=== PATIENT | female | born 1940 | race Caucasian/White ===

== ENCOUNTER 2023-10-15 09:54 | Emergency (ER) | payer MEDICARE ==
[2023-10-15] MEDS: Acetaminophen 500 MG Tab PO ONE (11:14)
== END 2023-10-15 13:12 | disposition home or self-care (01) ==
LOC: MW.ED 09:54
DX: S52.614A Nondisplaced fracture of right ulna styloid process, initial encounter for closed fracture (principal); S52.571A Other intraarticular fracture of lower end of right radius, initial encounter for closed fracture; S42.211A Unspecified displaced fracture of surgical neck of right humerus, initial encounter for closed fracture; Z88.0 Allergy status to penicillin; Z88.2 Allergy status to sulfonamides; W10.8XXA Fall (on) (from) other stairs and steps, initial encounter; Y93.01 Activity, walking, marching and hiking
CPT/HCPCS: 29105; 71045; 73030; 73060; 73090; 73110; 73130; 99283; A9270